=== PATIENT | female | born 2000 | race Caucasian/White ===

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

== ENCOUNTER 2019-10-14 22:02 | Emergency (ER) | payer BC ==
[2019-10-14 22:11] VITALS: BP 139/88; PULSE 86; RESP 18; TEMP 98.4
[2019-10-14 23:01] LABS: Appearance,Urine Turbid (Clear); Bilirubin,Urine Negative (Negative); Blood,Urine Large (Negative); Color,Urine Light Red; Glucose,Urine (UA) Negative (Negative); Ketones,Urine Negative (Negative); Leukocyte Esterase,Urine Large (Negative); Nitrite,Urine Negative (Negative); Protein,Urine 1+ (Negative); RBC,Urine >182 /hpf (0-5); Specific Gravity,Urine 1.017 (1.001-1.035); Urobilinogen,Urine <2.0 mg/dL (<2.0); WBC,Urine >182 /hpf (0-5)
[2019-10-14] MEDS ORDERED: CEPHALEXIN 500MG STARTER PACK 4 CAP BTL PO STA (23:16)
--- NOTE | 2019-10-14 23:19 | ED ---
Female Urogenital HPI - General Chief complaint: Urogenital Stated complaint: Urogenital Time Seen by Provider: 10/14/19 22:37 Source: patient Mode of arrival: ambulatory - History of Present Illness Initial comments: Laquita is a previously healthy 19-year-old female who presents to the ER today for concern for urinary tract infection. Patient reports she's had 2 days of burning with urination, urinary frequency and urgency. She also notes that she is having vaginal bleeding though she is midcycle right now. No concern for . No concern for sexual transmitted infections. Reports she only has a single partner they're in a monogamous relationship no history of STIs - Related Data Previous Rx's Medication Instructions Recorded Cephalexin [Keflex] 250 mg PO Q6H 3 Days #12 cap 10/14/19 Allergies Allergy/AdvReac Type Severity Reaction Status Date / Time No Known Allergies Allergy Verified 10/14/19 22:11 Review of Systems ROS Statement: Those systems with pertinent positive or pertinent negative responses have been documented in the HPI. ROS Other: All systems not noted in ROS Statement are negative. Past Medical History Past Medical History: No Reported History History of Any Multi-Drug Resistant Organisms: None Reported Past Surgical History: Ear Surgery Past Psychological History: No Psychological Hx Reported Smoking Status: Never smoker Past Alcohol Use History: None Reported Past Drug Use History: None Reported General Exam - General Exam Comments Initial Comments: Physical Exam GENERAL: Patient is well-developed and well-nourished. Patient is nontoxic and well-hydrated and is in no distress. HENT: Normocephalic, Atraumatic. EYES: PERRL, EOMI PULMONARY: Unlabored respirations. CARDIOVASCULAR: RRR Warm and well perfused extremities ABDOMEN: Non-distended Nontender to palpation No flank pain to percussion SKIN: No rashes or bruising : Deferred NEUROLOGIC: Alert and oriented Normal speech Normal gait MUSCULOSKELETAL: Moving all extremities with no apparent injury PSYCHIATRIC: No SI/HI Course Vital Signs 10/14/19 22:09 Temperature 98.4 F Pulse Rate 86 Respiratory 18 Rate Blood Pressure 139/88 O2 Sat by Pulse 99 Oximetry Medical Decision Making - Medical Decision Making The patient was seen and evaluated history is obtained from patient She is afebrile and not tachycardic no signs of sepsis no flank pain or signs of pyelonephritis Urinalysis consistent with urinary tract infection, first dose of Keflex given in the emergency department prescription was provided All questions pertaining care were answered return parameters were discussed the patient was discharged home in stable condition - Lab Data Lab Results 10/14/19 10/14/19 Range/Units 22:21 22:21 Urine Color Light Red Urine Appearance Turbid H (Clear) Urine pH 6.0 (5.0-8.0) Ur Specific [place] 1.017 (1.001-1.035) Urine Protein 1+ H (Negative) Urine Glucose (UA) Negative (Negative) Urine Ketones Negative (Negative) Urine Blood Large H (Negative) Urine Nitrite Negative (Negative) Urine Bilirubin Negative (Negative) Urine Urobilinogen <2.0 (<2.0) mg/dL Ur Leukocyte Esterase Large H (Negative) Urine RBC >182 H (0-5) /hpf Urine WBC >182 H (0-5) /hpf Urine HCG, Qual Not Detected (Not Detectd) Disposition Clinical Impression: Urinary tract infection Disposition: HOME SELF-CARE Condition: Stable Instructions (If sedation given, give patient instructions): Urinary Tract Infection in Women (ED) Additional Instructions: As we discussed to have a urinary tract infection, take your antibiotics, follow with her primary care provider Follow-up within [facility] if he continued to have irregular bleeding Return to the ER if you develop any worsening any fevers any vomiting and you are able to take your antibiotics or if you develop any new or concerning symptoms Prescriptions: Cephalexin [Keflex] 250 mg PO Q6H 3 Days #12 cap Is patient prescribed a controlled substance at d/c from ED?: No Referrals: None,Stated [Primary Care Provider] - 1-2 days
== END 2019-10-14 23:49 | disposition home or self-care (01) ==
LOC: EC 22:02
DX: N39.0 Urinary tract infection, site not specified (principal)
CPT/HCPCS: 81001; 81025; 87086; 99283

== ENCOUNTER 2020-09-13 11:32 | Emergency (ER) | payer BC, OTHER ==
[2020-09-13 11:36] VITALS: RESP 18; TEMP 97.5
--- NOTE | 2020-09-13 12:01 | ED ---
General Adult HPI - General Chief complaint: Urogenital Stated complaint: UTI Time Seen by Provider: 09/13/20 11:39 Source: patient Mode of arrival: ambulatory Limitations: no limitations - History of Present Illness Initial comments: 19-year-old female presents to the emergency room for UTI symptoms. Patient reports that she has pain and burning with urination. This is been ongoing for 4-5 days. Patient has had a previous urinary tract infection which felt similar. Patient denies any abdominal pain. Denies any lower or upper back pain. No fevers or chills at home. Patient does not have concern for STD at this time but does agree to testing.Patient has no other complaints at this time including shortness of breath, chest pain, abdominal pain, nausea or vomiting, headache, or visual changes. - Related Data Previous Rx's Medication Instructions Recorded cephALEXin [Keflex] 250 mg PO Q6H 3 Days #12 cap 10/14/19 Cephalexin [Keflex] 500 mg PO TID 10 Days #30 cap 09/13/20 Allergies Allergy/AdvReac Type Severity Reaction Status Date / Time No Known Allergies Allergy Verified 09/13/20 11:35 Review of Systems ROS Statement: Those systems with pertinent positive or pertinent negative responses have been documented in the HPI. ROS Other: All systems not noted in ROS Statement are negative. Past Medical History Past Medical History: No Reported History History of Any Multi-Drug Resistant Organisms: None Reported Past Surgical History: Ear Surgery Past Psychological History: No Psychological Hx Reported Smoking Status: Never smoker Past Alcohol Use History: None Reported Past Drug Use History: None Reported General Exam Limitations: no limitations General appearance: alert, in no apparent distress Head exam: Present: atraumatic, normocephalic, normal inspection Eye exam: Present: normal appearance, PERRL, EOMI. Absent: scleral icterus, conjunctival injection, periorbital swelling ENT exam: Present: normal exam, mucous membranes moist Neck exam: Present: normal inspection, full ROM. Absent: tenderness, meningismus, lymphadenopathy Respiratory exam: Present: normal lung sounds bilaterally. Absent: respiratory distress, wheezes, rales, rhonchi, stridor Cardiovascular Exam: Present: regular rate, normal rhythm, normal heart sounds. Absent: systolic murmur, diastolic murmur, rubs, gallop, clicks GI/Abdominal exam: Present: soft, normal bowel sounds. Absent: distended, tenderness, guarding, rebound, rigid Course Vital Signs 09/13/20 11:34 Temperature 97.5 F L Pulse Rate 72 Respiratory 18 Rate Blood Pressure 130/88 O2 Sat by Pulse 98 Oximetry Medical Decision Making - Medical Decision Making Patient afebrile. No abdominal tenderness or CVA tenderness. No concern for STDs however patient was tested. Does not want empiric treatment. Urinalysis does show evidence of infection. Patient was given a dose of IM Rocephin and then will be discharged home on Keflex. Will follow up with her doctor. He'll return here for any worsening symptoms. - Lab Data Lab Results 09/13/20 09/13/20 Range/Units 11:52 11:52 Urine Color Light Yellow Urine Appearance Turbid H (Clear) Urine pH 6.0 (5.0-8.0) Ur Specific [place] 1.017 (1.001-1.035) Urine Protein 1+ H (Negative) Urine Glucose (UA) Negative (Negative) Urine Ketones Negative (Negative) Urine Blood Large H (Negative) Urine Nitrite Negative (Negative) Urine Bilirubin Negative (Negative) Urine Urobilinogen <2.0 (<2.0) mg/dL Ur Leukocyte Esterase Large H (Negative) Urine RBC >182 H (0-5) /hpf Urine WBC >182 H (0-5) /hpf Urine Bacteria Rare H (None) /hpf Urine Mucus Rare H (None) /hpf Urine HCG, Qual Not Detected (Not Detectd) Disposition Clinical Impression: Urinary tract infection Disposition: HOME SELF-CARE Condition: Good Instructions (If sedation given, give patient instructions): Urinary Tract Infection in Women (ED) Additional Instructions: Please take antibiotics as directed. Please follow-up with your doctor in one to 2 days. Return to the emergency room for any worsening symptoms. Prescriptions: Cephalexin [Keflex] 500 mg PO TID 10 Days #30 cap Is patient prescribed a controlled substance at d/c from ED?: No Referrals: Lambert Reyna MD [Primary Care Provider] - 1-2 days Time of Disposition: 12:49
[2020-09-13 12:17] LABS: Appearance,Urine Turbid (Clear); Bacteria,Urine Rare /hpf; Bilirubin,Urine Negative (Negative); Blood,Urine Large (Negative); Color,Urine Light Yellow; Glucose,Urine (UA) Negative (Negative); Ketones,Urine Negative (Negative); Leukocyte Esterase,Urine Large (Negative); Mucus,Urine Rare /hpf; Nitrite,Urine Negative (Negative); Protein,Urine 1+ (Negative); RBC,Urine >182 /hpf (0-5); Specific Gravity,Urine 1.017 (1.001-1.035); Urobilinogen,Urine <2.0 mg/dL (<2.0); WBC,Urine >182 /hpf (0-5)
[2020-09-13] MEDS: cefTRIAXone 1,000 MG VIAL (IM USE) IM STA (13:01)
[2020-09-13 13:03] VITALS: BP 128/78; PULSE 88
== END 2020-09-13 13:06 | disposition home or self-care (01) ==
LOC: EC 11:32
DX: N39.0 Urinary tract infection, site not specified (principal)
CPT/HCPCS: 87591; 87491; 81001; 81025; 87808; 87086; 99283; 96372; J0696

== ENCOUNTER 2021-08-06 22:29 | Emergency (ER) | payer BC, OTHER ==
[2021-08-06 22:40] VITALS: RESP 18; TEMP 97.8
--- NOTE | 2021-08-06 22:56 | ED ---
Female Urogenital HPI - General Chief complaint: Urogenital Stated complaint: UTI Time Seen by Provider: 08/06/21 22:42 Source: patient, RN notes reviewed Mode of arrival: ambulatory - History of Present Illness Initial comments: Patient states that she has had dysuria and frequency for the past few days. Patient denying any significant vaginal discharge. No fever or chills. No nausea or vomiting. No back pain. Is sexually active. Patient states a few days ago she was diagnosed with a sinus infection as treating symptomatically with Benadryl and was given IV antibiotic drops. No headache, no fever or chills, no changes in vision or hearing, no sore throat or difficulty with speech, no neck pain, no chest pain or shortness of breath, no abdominal pain, no nausea or vomiting, no changes in bowel movements, no numbness or tingling, no extremity pain, no skin rashes or lesions. MD Complaint: dysuria Last Menstrual Period: 07/17/21 - Related Data Previous Rx's Medication Instructions Recorded Cephalexin [Keflex] 500 mg PO TID 7 Days #21 cap 09/13/20 Phenazopyridine HCl [Pyridium] 100 mg PO TID PRN #6 tab 08/07/21 Sulfamethox-Tmp 800-160Mg [Bactrim 1 tab PO Q12HR #14 tab 08/07/21 DS 800-160 mg] Allergies Allergy/AdvReac Type Severity Reaction Status Date / Time No Known Allergies Allergy Verified 09/13/20 12:56 Review of Systems ROS Statement: Those systems with pertinent positive or pertinent negative responses have been documented in the HPI. ROS Other: All systems not noted in ROS Statement are negative. Past Medical History Past Medical History: No Reported History Additional Past Medical History / Comment(s): Urinary tract infection History of Any Multi-Drug Resistant Organisms: None Reported Past Surgical History: Ear Surgery Past Psychological History: No Psychological Hx Reported Smoking Status: Former smoker Past Alcohol Use History: Occasional Past Drug Use History: None Reported General Exam - General Exam Comments Initial Comments: Patient does not appear to be ill or toxic. Vital signs reviewed General appearance: obese Head exam: Present: atraumatic, normocephalic, normal inspection Eye exam: Present: normal appearance, PERRL, EOMI. Absent: scleral icterus, conjunctival injection, periorbital swelling ENT exam: Present: normal exam, mucous membranes moist Neck exam: Present: normal inspection. Absent: tenderness, meningismus, lymphadenopathy Respiratory exam: Present: normal lung sounds bilaterally. Absent: respiratory distress, wheezes, rales, rhonchi, stridor Cardiovascular Exam: Present: regular rate, normal rhythm, normal heart sounds. Absent: systolic murmur, diastolic murmur, rubs, gallop, clicks GI/Abdominal exam: Present: soft, normal bowel sounds. Absent: distended, tenderness, guarding, rebound, rigid Extremities exam: Present: normal inspection, full ROM, normal capillary refill. Absent: tenderness, pedal edema, joint swelling, calf tenderness Back exam: Present: normal inspection Neurological exam: Present: alert, oriented X3, CN II-XII intact Psychiatric exam: Present: normal affect, normal mood Skin exam: Present: warm, dry, intact, normal color. Absent: rash Course Vital Signs 08/06/21 22:33 Temperature 97.8 F Pulse Rate 107 H Respiratory 18 Rate Blood Pressure 129/83 O2 Sat by Pulse 98 Oximetry - Reevaluation(s) Reevaluation #1: 08/07/21 00:07 Symptomology unchanged, urinalysis shows evidence of urinary tract infection. Patient will be started on Bactrim and Pyridium Medical Decision Making - Medical Decision Making Impression presents with symptomology consistent with acute cystitis, urgency, dysuria. Patient does not appear ill or toxic otherwise. Patient states she is sexually active. Patient denies any significant vaginal discharge. However she does partake in unprotected sex. We'll add an hCG as well as gonorrhea and chlamydia testing urine. Patient deferred pelvic examination. Patient has no CVA tenderness. No abdominal pain. Does not appear to be ill or toxic. Pyelonephritis unlikely. Other intra-abdominal pathology unlikely as well. Patient be treated with Bactrim DS and Pyridium. I see no indication for further workup at this time. Urinalysis consistent with acute cystitis Patient was told to return to the ER for any signs or symptoms worsen. Told to return immediately if any other problems arise. All questions answered. Treatment plan discussed. Patient in agreement Every effort has been made to ensure accuracy of this dictation. However, due to the limitations of electronic medical records and dictation devices, errors in charting still occur. [employer] Dr. Walker We'll treat for 7 days as the patient has history of acute cystitis on multiple occasions - Lab Data Lab Results 08/06/21 08/06/21 Range/Units 23:00 23:00 Urine Color Yellow Urine Appearance Turbid H (Clear) Urine pH 6.0 (5.0-8.0) Ur Specific [place] 1.020 (1.001-1.035) Urine Protein 2+ H (Negative) Urine Glucose (UA) Negative (Negative) Urine Ketones Negative (Negative) Urine Blood Large H (Negative) Urine Nitrite Negative (Negative) Urine Bilirubin Negative (Negative) Urine Urobilinogen <2.0 (<2.0) mg/dL Ur Leukocyte Esterase Large H (Negative) Urine RBC >182 H (0-5) /hpf Urine WBC >182 H (0-5) /hpf Ur Squamous Epith Cells 2 (0-4) /hpf Urine Bacteria Rare H (None) /hpf Urine Mucus Rare H (None) /hpf Urine HCG, Qual Not Detected (Not Detectd) Disposition Clinical Impression: Acute cystitis Disposition: HOME SELF-CARE Instructions (If sedation given, give patient instructions): Urinary Tract Infection in Women (ED) Additional Instructions: Take antibiotics as directed. Drink plenty of fluids. Add in cranberry juice. You can use the Pyridium for discomfort. You can also take Tylenol and ibuprofen for further pain control if needed. Take all antibiotics until they are gone Is patient prescribed a controlled substance at d/c from ED?: No Referrals: Susan Gamboa MD [STAFF PHYSICIAN] - 08/12/21 Time of Disposition: 00:08
[2021-08-06 23:40] LABS: Appearance,Urine Turbid (Clear); Bacteria,Urine Rare /hpf; Bilirubin,Urine Negative (Negative); Blood,Urine Large (Negative); Color,Urine Yellow; Glucose,Urine (UA) Negative (Negative); Ketones,Urine Negative (Negative); Leukocyte Esterase,Urine Large (Negative); Mucus,Urine Rare /hpf; Nitrite,Urine Negative (Negative); Protein,Urine 2+ (Negative); RBC,Urine >182 /hpf (0-5); Squamous Epithelial Cell,Urine 2 /hpf (0-4); Urobilinogen,Urine <2.0 mg/dL (<2.0); WBC,Urine >182 /hpf (0-5)
[2021-08-07] MEDS ORDERED: SULFAMETHOX-TMP 800-160MG 1 EACH TAB PO STA (00:06)
[2021-08-07] MEDS ORDERED: PHENAZOPYRIDINE 200 MG TAB PO STA (00:07)
[2021-08-07 01:17] VITALS: BP 122/68; PULSE 72
== END 2021-08-07 00:30 | disposition home or self-care (01) ==
LOC: EC 22:29
DX: N30.00 Acute cystitis without hematuria (principal); Z87.891 Personal history of nicotine dependence
CPT/HCPCS: 81001; 81025; 87491; 87591

== ENCOUNTER → 2021-10-09 | Outpatient (CLI) | payer MEDICAID, BC ==
[2021-10-09 18:48] LABS: HGB 12.8 g/dL (12.0-15.0); MCH 27.2 pg (27.0-32.0); MCHC 32.8 g/dL (32.0-37.0); Mean Platelet Volume 9.7 fL (9.5-12.2); NRBC Per 100 WBC 0 /100 WBCS (0.0-0.0); Platelet Count 248 X 10*3/uL (140-440); WBC 9.12 X 10*3/uL (4.50-10.00)
[2021-10-09 19:32] LABS: Non-African American GFR(CKD) 129.4 (60.0-200.0)
[2021-10-09 19:59] LABS: Hepatitis B Surface Antigen Nonreactive (Nonreactive)
[2021-10-09 22:50] LABS: HIV 2 AB Non-Reactive (Non-Reactive); HIV AB P24 Non-Reactive (Non-Reactive); HIV P24 AG Non-Reactive (Non-Reactive)
[2021-10-13 05:27] LABS: Toxoplasma Antibody (IgG) 6.2 IU/mL (<7.2); Toxoplasma Antibody (IgM) <3.0 AU/mL (<8.0)
== END | disposition home or self-care (01) ==
LOC: LABWHC1 11:29
PROVIDERS: ATTEND Obstetrics & Gynecology
DX: Z34.01 Encounter for supervision of normal first pregnancy, first trimester (principal); Z3A.00 Weeks of gestation of pregnancy not specified
CPT/HCPCS: 36415; 82565; 82947; 85027; 86592; 86762; 86777; 86778; 86850; 86900; 86901; 87340; 87390

== ENCOUNTER → 2021-10-21 | Outpatient (CLI) | payer MEDICAID, BC ==
--- NOTE | 2021-10-21 13:14 | US ---
EXAMINATION TYPE: Transabdominal DATE OF EXAM: 10/21/2021 1:00 PM COMPARISON: NONE CLINICAL HISTORY: Z36.89 Encounter for other specified scr. early ob, G1 EXAM PERFORMED: OBTA EXAM MEASUREMENTS: GESTATIONAL AGE / DATING Physician Established: (13 weeks/5 days) EDC: 04/23/2022 Dates by LMP: (13 weeks/5 days) EDC: 04/23/2022 Dates by First Scan: No previous this is first scan Dates by Current Scan for: (14 weeks/1 days) EDC: 04/20/2022 MATERNAL ANATOMY Uterus: 11.0 x 8.4 x 6.6cm Right Ovary: 2.8 x 1.8 x 1.8cm Left Ovary: not seen, enlarging UT and bowel gas Post CDS / Adnexa: wnl Presence of free fluid: no Presence of corpus luteal cyst: not seen Presence of subchorionic bleed: no GESTATION / SURVEY CRL: 8.1cm (14 weeks/1 days) MSD: wnl Yolk Sac (normal less than 6mm): not seen Heart Rate: 142 bpm Rhythm: Normal IUP: Viable IUP Date of LMP: 07/17/2021 IMPRESSION: Intrauterine with ultrasound age 14 weeks 1 day by crown-rump length.
== END | disposition home or self-care (01) ==
LOC: RADUSWWP 12:29
PROVIDERS: ATTEND Obstetrics & Gynecology
DX: Z36.89 Encounter for other specified antenatal screening (principal); Z3A.14 14 weeks gestation of pregnancy
CPT/HCPCS: 76801

== ENCOUNTER → 2021-11-30 | Outpatient (CLI) | payer MEDICAID, BC ==
--- NOTE | 2021-11-30 15:07 | US ---
EXAMINATION TYPE: US OB anatomy transabd DATE OF EXAM: 11/30/2021 COMPARISON: Ultrasound 10/21/2021. HISTORY: O36.62X0 MATERNAL CARE FOR EXCESS GROWTH, SE Anatomy scan TECHNIQUE: Transabdominal (TA) EXAM MEASUREMENTS: GESTATIONAL AGE / DATING Physician Established: (19 weeks/3 days) EDC: 04/23/2022 Dates by Current Scan for: (19 weeks/5 days) EDC: 04/21/2022 SURVEY IUP: Single PLACENTA: Anterior PREVIA: No previa KATHERYN: 17.7 cm Normal CERVICAL LENGTH (transabdominal: norm > 3.0cm): 3.3 cm BIOMETRY PRESENTATION: Variable LIE: Transverse lie with head maternal left BPD: 4.5 cm 19 weeks / 4 days HC: 16.8 cm 19 weeks / 3 days AC: 14.3 cm 19 weeks / 5 days FL: 3.2 cm 19 weeks / 6 days ESTIMATED WEIGHT IN GRAMS: 306 grams ESTIMATED WEIGHT IN LBS/OZ: 0 lbs. 11 oz. WEIGHT PERCENTAGE BASED ON ESTABLISHED DATE: 60 % HC/AC: 1.2 Normal FL/AC: 22% HEART RATE: 143 bpm RHYTHM: Normal ANATOMY SEEN (within normal limits): * Lateral Vent (< 1 cm) 1.9 cm * Cisterna Magna (< 1.1 cm) 0.4 cm * Nuchal Fold (< 0.6 cm) 0.4 cm * Cerebellum (varies with age) 1.9 cm Choroid Plexus (bilateral) Midline Falx Cavus Septi Pellucidi Four Chamber Heart Outflow tracts: LVOT/RVOT Stomach Situs Nose / Lips Diaphragm Kidneys (bilateral) Bladder Cord Insert Three Vessel Cord Longitudinal Spine Transverse Spine Arms (bilateral) Legs (bilateral) Feet Hands ANATOMY SEEN (does not appear within normal limits): NONE ANATOMY NOT SEEN: NONE IMPRESSION: Single live intrauterine as described above.
== END | disposition home or self-care (01) ==
LOC: RADUSWWP 13:07
PROVIDERS: ATTEND Obstetrics & Gynecology
DX: O36.62X0 Maternal care for excessive fetal growth, second trimester, not applicable or unspecified (principal); Z3A.19 19 weeks gestation of pregnancy
CPT/HCPCS: 76811

== ENCOUNTER → 2022-01-12 | Outpatient (CLI) | payer MEDICAID ==
[2022-01-12 15:20] LABS: HCT 35.3 % (37.2-46.3); HGB 11.5 g/dL (12.0-15.0); MCH 28.1 pg (27.0-32.0); MCHC 32.6 g/dL (32.0-37.0); MCV 86.3 fL (80.0-97.0); Mean Platelet Volume 10.4 fL (9.5-12.2); NRBC Per 100 WBC 0 /100 WBCS (0.0-0.0); Platelet Count 222 X 10*3/uL (140-440); RBC 4.09 X 10*6/uL (4.10-5.20); RDW 13.5 % (11.5-14.5); WBC 8.22 X 10*3/uL (4.50-10.00)
== END | disposition home or self-care (01) ==
LOC: LABWHC1 09:27
PROVIDERS: ATTEND Obstetrics & Gynecology
DX: Z34.02 Encounter for supervision of normal first pregnancy, second trimester (principal); Z3A.00 Weeks of gestation of pregnancy not specified
CPT/HCPCS: 36415; 82950; 85027

== ENCOUNTER → 2022-01-21 | Outpatient (CLI) | payer MEDICAID ==
[2022-01-21 14:43] LABS: Glucose 3 Hour, Gest 120 mg/dL
== END | disposition home or self-care (01) ==
LOC: LABWHC1 08:31
PROVIDERS: ATTEND Obstetrics & Gynecology
DX: O99.810 Abnormal glucose complicating pregnancy (principal); Z3A.00 Weeks of gestation of pregnancy not specified
CPT/HCPCS: 36415; 82951; 82952

== ENCOUNTER 2022-04-20 06:08 | Inpatient (IN) | payer MEDICAID, BC ==
--- NOTE | 2022-04-19 19:25 | P.HPOB ---
History of Present Illness H&P Date: 04/19/22 Chief Complaint: Induction of labor This is a 21 y.o. female, 1, para 0, who presents for induction of labor. She complains of irregular contractions and pressure. course has been relatively uncomplicated. EFW at 35-1/2 weeks was 6#14oz (87%). labs: Toxoplasma screen-neg Random glucose-92 Hemoglobin-12.8 Hepatitis B surface antigen-neg RPR-NR HIV-NR Blood type-A+ Antibody screen-neg GC/Chlamydia-neg 1 hr. GTT-168 3 hr. GTT-wnl GBS-neg Review of Systems Constitutional: Denies chills, Denies fever Eyes: denies blurred vision, denies pain Ears, nose, mouth and throat: Denies headache, Denies sore throat Cardiovascular: Denies chest pain, Denies shortness of breath Respiratory: Denies cough Gastrointestinal: Reports abdominal pain (irregular contractions) Genitourinary: Reports pelvic pain, Reports Musculoskeletal: Reports low back pain Integumentary: Denies pruritus, Denies rash Neurological: Denies numbness, Denies weakness Psychiatric: Denies anxiety, Denies depression Past Medical History Past Medical History: No Reported History History of Any Multi-Drug Resistant Organisms: None Reported Past Surgical History: Ear Surgery Past Anesthesia/Blood Transfusion Reactions: No Reported Reaction Past Psychological History: No Psychological Hx Reported Smoking Status: Former smoker Past Alcohol Use History: None Reported Past Drug Use History: None Reported - Past Family History Sister(s) Family Medical History: Hypertension Medications and Allergies Home Medications Medication Instructions Recorded Confirmed Type Gym-Cdwy-Gvcrj Acid 1 cap PO DAILY 04/19/22 04/19/22 History [-U Capsule (formulary)] Allergies Allergy/AdvReac Type Severity Reaction Status Date / Time No Known Allergies Allergy Verified 09/13/20 12:56 Exam Osteopathic Statement: *. No significant issues noted on an osteopathic structural exam other than those noted in the History and Physical/Consult. HEENT: within normal limits Heart: regular rate and rhythm Lungs: clear to auscultation bilaterally Abdomen: , non-tender Cervix: 1.5 cm/80%/-2 heart tones: 140's by doppler Extremities: neg. Francisco's Assessment and Plan (1) 39 weeks gestation of Status: Acute Code(s): Z3A.39 - 39 WEEKS GESTATION OF SNOMED Code(s): 56790616 Plan: Admission for oxytocin induction of labor. Expectant management. Epidural anesthesia if desired.
[2022-04-20] MEDS ORDERED: OXYTOCIN 10 UNIT/ML 1 ML VIAL IM PRN (06:20)
[2022-04-20] MEDS ORDERED: LIDOCAINE 1% (10MG/ML) FOR IV START INTRADERMA PRN (06:20)
[2022-04-20] MEDS ORDERED: TERBUTALINE 1 MG/ML VIAL SQ PRN (06:20)
[2022-04-20] MEDS ORDERED: miSOPROStoL 200 MCG TAB PO PRN (06:20)
[2022-04-20] MEDS ORDERED: CARBOPROST TROMETHAMINE 250 MCG/ML 1 ML AMP IM PRN (06:20)
[2022-04-20] MEDS ORDERED: METHYLERGONOVINE 0.2 MG/ML 1 ML AMP IM PRN (06:20)
[2022-04-20] MEDS ORDERED: OXYTOCIN 30 UNITS/500 ML NS 30 UNIT in SALINE 1 500ML.BAG IV SCH (06:20)
[2022-04-20] MEDS ORDERED: LIDOCAINE 0.5% (PF) 5 MG/ML (50 ML SDV) SQ PRN (06:20)
[2022-04-20] MEDS ORDERED: TRANEXAMIC ACID IN NACL,ISO-OS 1,000 MG in EMPTY BAG 1 BAG IV PRN (06:20)
[2022-04-20] MEDS: LACTATED RINGERS 1,000 ML IV SCH ×2 (06:37→13:42)
[2022-04-20 06:48] LABS: Basophils % (A) 1 %; Eosinophils # (A) 0.1 k/uL (0-0.7); Eosinophils % (A) 1 %; HCT 36.7 % (34.0-46.0); HGB 12.3 gm/dL (11.4-16.0); Lymphocytes # (A) 2.4 k/uL (1.0-4.8); Lymphocytes % (A) 25 %; MCH 27.5 pg (25.0-35.0); MCHC 33.5 g/dL (31.0-37.0); MCV 82.2 fL (80.0-100.0); Monocytes # (A) 0.4 k/uL (0-1.0); Monocytes % (A) 5 %; Neutrophils # (A) 6.3 k/uL (1.3-7.7); Neutrophils % (A) 67 %; Platelet Count 266 k/uL (150-450); RBC 4.46 m/uL (3.80-5.40); RDW 13.9 % (11.5-15.5); WBC 9.5 k/uL (3.8-10.6)
--- NOTE | 2022-04-20 17:10 | P.PROBDLV ---
Vaginal Delivery Note - . Vaginal Delivery Note: The patient progressed to complete dilation after oxytocin induction of labor and artificial rupture membranes with clear fluid noted. She did not receive anything for pain while in labor. Once reaching complete, she began pushing. 's head came to a crown. With one further push, the 's head delivered across the perineum followed by the anterior shoulder and the remainder the . Infant was placed on mother's abdomen, nose and mouth were bulb suctioned, and then cord was clamped and cut. Infant was taken to warmer for evaluation by nursing staff. A viable female was noted with scores of 9 at 1 minute and 9 at 5 minutes and weight of 8 pounds 2.5 ounces. Placenta delivered shortly thereafter, intact, with a three-vessel cord. Uterus contracted well after oxytocin was given and uterine massage was carried out. Inspection of the perineum revealed a second-degree perineal laceration. This area was anesthetized with 1% lidocaine and then sutured with 3-0 and 2-0 Vicryl suture in the usual multilayer fashion. At this point there was noted be some oozing and therefore a gloved hand was placed within the intrauterine cavity and several blood clots were removed. Uterus did firm up after this. Estimated blood loss is approximately 200 mL's. Both mother and are in stable condition.
[2022-04-20] MEDS ORDERED: diphenhydrAMINE 25 MG CAP PO PRN (18:20)
[2022-04-20] MEDS ORDERED: diphenhydrAMINE 50 MG/ML 1 ML VIAL IVP PRN ×2 (18:20)
[2022-04-20] MEDS ORDERED: HYDROCORTISONE 2.5% RECTAL CREAM 30 GM TUBE RECTAL PRN (18:20)
[2022-04-20] MEDS ORDERED: diphenhydrAMINE 50 MG CAP PO PRN (18:20)
[2022-04-20] MEDS ORDERED: BENZOCAINE/MENTHOL SPRAY 1 GM/SPRAY AEROSOL TOPICAL PRN (18:20)
[2022-04-20] MEDS ORDERED: LANOLIN CREAM 5 GM TUBE TOPICAL PRN (18:20)
[2022-04-20] MEDS ORDERED: ZOLPIDEM 5 MG TAB PO PRN (18:20)
[2022-04-20] MEDS ORDERED: SIMETHICONE 80 MG CHEWABLE PO PRN (18:20)
[2022-04-20] MEDS: IBUPROFEN 600 MG TAB PO PRN (18:44)
[2022-04-20] MEDS: ACETAMINOPHEN TAB 325 MG TAB PO PRN (20:30)
[2022-04-20] MEDS: SENNOSIDES-DOCUSATE SODIUM 1 EACH TAB PO SCH (20:31)
[2022-04-21 07:14] LABS: Basophils % (A) 0 %; Eosinophils % (A) 0 %; HCT 33.2 % (34.0-46.0); HGB 10.9 gm/dL (11.4-16.0); Lymphocytes # (A) 2.6 k/uL (1.0-4.8); Lymphocytes % (A) 25 %; MCH 27.6 pg (25.0-35.0); MCHC 32.9 g/dL (31.0-37.0); MCV 83.9 fL (80.0-100.0); Mean Platelet Volume 8.2; Monocytes # (A) 0.6 k/uL (0-1.0); Monocytes % (A) 5 %; Neutrophils # (A) 6.9 k/uL (1.3-7.7); Neutrophils % (A) 67 %; Platelet Count 199 k/uL (150-450); RBC 3.96 m/uL (3.80-5.40); RDW 13.9 % (11.5-15.5); WBC 10.3 k/uL (3.8-10.6)
[2022-04-21] MEDS: IBUPROFEN 600 MG TAB PO PRN (08:12)
[2022-04-21] MEDS: SENNOSIDES-DOCUSATE SODIUM 1 EACH TAB PO SCH (08:12)
--- NOTE | 2022-04-21 08:27 | P.DS ---
Providers Date of admission: 04/20/22 06:08 Expected date of discharge: 04/21/22 Attending physician: Loida Acosta Primary care physician: Stated None - Discharge Diagnosis(es) (1) 39 weeks gestation of Current Visit: No Status: Acute Hospital Course: This is a 21-year-old female 1 para 0 at 39-4/7 weeks who presented for induction of labor. She underwent oxytocin induction of labor and delivered vaginally a viable female on 04/20/2022 with scores of 9 at 1 minute and 9 at 5 minutes and weight of 8 pounds 2.5 ounces. Her course has been uncomplicated. Lochia has been decreasing. Pain is well-controlled. She is breast-feeding. Vital signs are stable. Abdomen is soft with fundus firm and nontender. Extremities show negative Homans. Impression is status post vaginal delivery day #1. Plan is to discharge home today. Routine instructions are given. She is advised follow-up in the office in 6 weeks for a check. She is advised to call the office if she has any further questions or concerns prior to her current time. She will be given a prescription for ibuprofen and a breast pump. Procedures: Oxytocin induction of labor Spontaneous vaginal delivery of a viable female infant on 04/20/2022 Patient Condition at Discharge: Stable Plan - Discharge Summary New Discharge Prescriptions: No Action Tqb-Tilz-Uoiho Acid [-U Capsule (formulary)] 1 cap PO DAILY Discharge Medication List Ubh-Nhbe-Qbtgx Acid [-U Capsule (formulary)] 1 cap PO DAILY 04/19/22 [History] Follow up Appointment(s)/Referral(s): Loida Acosta DO [Doctor of Osteopathic Medicine] - 06/02/22 4:00 pm
[2022-04-21] MEDS: ACETAMINOPHEN TAB 325 MG TAB PO PRN (11:28)
[2022-04-21 11:45] VITALS: RESP 16
[2022-04-21 16:15] VITALS: BP 125/76; PULSE 86; TEMP 97.6
== END 2022-04-21 16:45 | disposition home or self-care (01) | DRG 807 ==
LOC: 4FBP 06:08
PROVIDERS: ADMIT Obstetrics & Gynecology; ATTEND Obstetrics & Gynecology
PROC: 10E0XZZ Delivery of Products of Conception, External Approach (ICD-10-PCS; principal; 2022-04-20)
PROC: 0KQM0ZZ Repair Perineum Muscle, Open Approach (ICD-10-PCS; 2022-04-20)
PROC: 4A0HXCZ Measurement of Products of Conception, Cardiac Rate, External Approach (ICD-10-PCS; 2022-04-20)
PROC: 3E033VJ Introduction of Other Hormone into Peripheral Vein, Percutaneous Approach (ICD-10-PCS; 2022-04-20)
DX: O70.1 Second degree perineal laceration during delivery (principal); Z37.0 Single live birth; Z3A.39 39 weeks gestation of pregnancy; Z87.891 Personal history of nicotine dependence
CPT/HCPCS: 85025; 86850; 86900; 86901